=== PATIENT | male | born 1945 | race Two or more races ===

== ENCOUNTER 2018-05-16 16:56 | Emergency (ER) | payer BC ==
[~2018-05-16] VITALS: Ht 177.8 cm; Wt 85.3 kg
[2018-05-16] MEDS ORDERED: ASPIR 8181 MG PO (17:32)
[2018-05-16] MEDS ORDERED: ENBREL50 MG/1 M2 SQ (17:33)
[2018-05-16] MEDS ORDERED: TORSEMIDE10 MG PO (17:33)
[2018-05-16] MEDS ORDERED: AMIODARONE HCL200 MG NGT (17:34)
[2018-05-16] MEDS ORDERED: CARVEDILOL6.25 MG PO (17:34)
[2018-05-16] MEDS ORDERED: COUMADIN4 MG (17:34)
[2018-05-16] MEDS ORDERED: SIMVASTATIN20 MG PO (17:34)
[2018-05-16] MEDS ORDERED: HYDROCORTISONE59 ML (17:35)
[2018-05-16] MEDS ORDERED: FOSAMAX70 MG PO (17:35)
== END 2018-05-16 21:27 | disposition home or self-care (01) ==
LOC: ER 16:56
DX: S70.02XA Contusion of left hip, initial encounter (principal); W18.39XA Other fall on same level, initial encounter; Y93.89 Activity, other specified; Y92.89 Other specified places as the place of occurrence of the external cause; Y99.8 Other external cause status